=== PATIENT | female | born 2000 | race Caucasian/White ===

== ENCOUNTER 2023-03-04 22:33 | Emergency (ER) | payer MEDICAID ==
[~2023-03-04] VITALS: Ht 177.8 cm; Wt 55.5 kg
[2023-03-04 22:40] VITALS: O2SAT 99
[2023-03-04] MEDS ORDERED: BACITRACIN ZINC OINT UDPKT TOP ONE (22:45)
[2023-03-04] MEDS ORDERED: LIDOCAINE HCL/PF 1% 10 MG/ML 5ML VIAL INFIL ONE (22:45)
[2023-03-04] MEDS ORDERED: IBUPROFEN 600MG TABLET PO ONE (22:45)
[2023-03-04 23:40] VITALS: BP 116/64
[2023-03-05] MEDS ORDERED: BO1 TP (00:11)
[2023-03-05] MEDS ORDERED: IBUP-2028 MT (00:11)
[2023-03-05 00:45] VITALS: PULSE 95; RESP 17; TEMP 98.4
== END 2023-03-05 00:47 | disposition home or self-care (01) ==
LOC: ER 22:33
DX: S71.112A Laceration without foreign body, left thigh, initial encounter (principal); W26.8XXA Contact with other sharp object(s), not elsewhere classified, initial encounter; Y93.89 Activity, other specified; Y92.89 Other specified places as the place of occurrence of the external cause; Y99.8 Other external cause status
CPT/HCPCS: 81025; 12001; 99283; J3490; Z7610 ×2

== ENCOUNTER 2023-03-07 11:41 | Emergency (ER) | payer MEDICAID ==
[~2023-03-07] VITALS: Ht 175.3 cm; Wt 54.0 kg
[~2023-03-07 11:41] MED LIST: BO1 TP; IBUP-2028 MT
[2023-03-07 11:47] VITALS: BP 105/65; O2SAT 97
[2023-03-07 12:13] VITALS: PULSE 84; RESP 18; TEMP 97.7
== END 2023-03-07 12:17 | disposition home or self-care (01) ==
LOC: ER 11:41
DX: Z48.02 Encounter for removal of sutures (principal)
CPT/HCPCS: 99281

== ENCOUNTER 2023-03-17 15:31 | Emergency (ER) | payer MEDICAID ==
[~2023-03-17] VITALS: Ht 177.8 cm; Wt 55.0 kg
[2023-03-17 15:33] VITALS: BP 119/78; PULSE 85; TEMP 98.7; O2SAT 98
== END 2023-03-17 16:20 | disposition home or self-care (01) ==
LOC: ER 15:31
DX: S71.112D Laceration without foreign body, left thigh, subsequent encounter (principal); Z98.890 Other specified postprocedural states; X58.XXXD Exposure to other specified factors, subsequent encounter
CPT/HCPCS: 99281; Z7610 ×2

== ENCOUNTER 2023-05-28 20:55 | Emergency (ER) | payer MEDICAID ==
[~2023-05-28] VITALS: Ht 177.8 cm; Wt 54.0 kg
[2023-05-28] MEDS ORDERED: LORAZEPAM 1MG TABLET PO ONE (21:15)
[2023-05-28 21:55] LABS: BASOPHILS % 0.6 % (0.0-2.0); EOSINOPHILS % 2.1 % (0.0-5.0); HEMATOCRIT. 36.7 % (36.0-48.0); HEMOGLOBIN. 12.7 g/dL (12.0-16.0); LYMPHOCYTES % 23.8 % (20.0-50.0); MEAN CORPUSCULAR HEMOGLOBIN 31.7 pg (28.0-32.0); MEAN CORPUSCULAR HGB CONC 34.6 g/dL (31.0-37.0); MEAN CORPUSCULAR VOLUME 91.6 fL (81.0-99.0); MONOCYTES % 13.6 % (2.0-8.0); NEUTROPHILS % 59.9 % (40.0-76.0); PLATELET 278 x1000/uL (130-400); RED CELL DISTRIBUTION WIDTH 13.1 % (11.6-14.6); WHITE BLOOD COUNT 7.6 x1000/uL (4.5-11.0)
[2023-05-28 21:58] LABS: CLARITY URINE CLEAR (CLEAR); COLOR URINE YELLOW (YELLOW); GLUCOSE URINE NEGATIVE (NEGATIVE); KETONES URINE NEGATIVE (NEGATIVE); LEUKOCYTE ESTERASE URINE NEGATIVE (NEGATIVE); NITRITE URINE NEGATIVE (NEGATIVE); OCCULT BLOOD URINE NEGATIVE (NEGATIVE); PH URINE 5.5 (4.5-8.0); PROTEIN URINE NEGATIVE (NEGATIVE); UROBILINOGEN URINE 0.2 E.U./dL (0.2-1.0)
[2023-05-28 22:07] LABS: ALANINE AMINOTRANSFERASE 10 IU/L (10-49); ALBUMIN 4.3 g/dL (3.2-4.8); ASPARTATE AMINOTRANSFERASE 18 IU/L (<34); BILIRUBIN TOTAL 0.7 mg/dL (0.1-1.0); CALCIUM 9.4 mg/dL (8.7-10.4); CARBON DIOXIDE 25 mEq/L (21-32); CHLORIDE 106 mEq/L (98-107); CREATININE 0.7 mg/dL (0.6-1.0); GLUCOSE 86 mg/dL (70-105); POTASSIUM 3.9 mEq/L (3.5-5.1); PROTEIN TOTAL 7.7 g/dL (6.0-8.3); SODIUM 138 mEq/L (136-145); UREA NITROGEN BLOOD 11 mg/dL (9-23)
[2023-05-28 22:18] LABS: TROPONIN I HIGH SENSITIVITY < 4 ng/L (3.0-34)
[2023-05-29 02:04] VITALS: O2SAT 100
[2023-05-29] MEDS ORDERED: LORAZEPAM 1MG TABLET PO NR (02:15)
[2023-05-29 02:51] VITALS: BP 108/58; PULSE 72; RESP 16; TEMP 98
== END 2023-05-29 02:55 | disposition home or self-care (01) ==
LOC: ER 20:55
DX: F41.9 Anxiety disorder, unspecified (principal); Z98.890 Other specified postprocedural states
CPT/HCPCS: 36415; 71045; 80053; 81003; 81025; 84484; 85025; 93005; 99285

== ENCOUNTER 2023-09-26 06:04 | Emergency (ER) | payer MEDICAID ==
[~2023-09-26] VITALS: Ht 177.8 cm; Wt 55.0 kg
[2023-09-26 06:10] VITALS: O2SAT 100
[2023-09-26 06:52] LABS: BASOPHILS % 0.5 % (0.0-2.0); EOSINOPHILS % 0.6 % (0.0-5.0); HEMATOCRIT. 37.2 % (36.0-48.0); HEMOGLOBIN. 13.3 g/dL (12.0-16.0); MEAN CORPUSCULAR HEMOGLOBIN 32.7 pg (28.0-32.0); MEAN CORPUSCULAR HGB CONC 35.6 g/dL (31.0-37.0); MEAN CORPUSCULAR VOLUME 91.7 fL (81.0-99.0); MONOCYTES % 6.3 % (2.0-8.0); NEUTROPHILS % 68.6 % (40.0-76.0); PLATELET 356 x1000/uL (130-400); RED BLOOD CELL COUNT 4.06 mill/uL (4.2-5.4); RED CELL DISTRIBUTION WIDTH 12.3 % (11.6-14.6); WHITE BLOOD COUNT 9.8 x1000/uL (4.5-11.0)
[2023-09-26 06:59] LABS: CARBON DIOXIDE 26 mEq/L (21-32); CHLORIDE 102 mEq/L (98-107); POTASSIUM 3.3 mEq/L (3.5-5.1); SODIUM 137 mEq/L (136-145)
[2023-09-26 07:00] LABS: CALCIUM 9.5 mg/dL (8.7-10.4)
[2023-09-26 07:05] LABS: CREATININE 0.7 mg/dL (0.6-1.0); GLUCOSE 105 mg/dL (70-105); UREA NITROGEN BLOOD 11 mg/dL (9-23)
[2023-09-26 07:57] LABS: HCG SCREEN NEGATIVE
[2023-09-26 08:09] LABS: ACETAMINOPHEN < 2 ug/mL (10-30)
[2023-09-26 08:32] LABS: CLARITY URINE CLEAR (CLEAR); COLOR URINE YELLOW (YELLOW); GLUCOSE URINE NEGATIVE (NEGATIVE); KETONES URINE NEGATIVE (NEGATIVE); LEUKOCYTE ESTERASE URINE NEGATIVE (NEGATIVE); NITRITE URINE NEGATIVE (NEGATIVE); OCCULT BLOOD URINE NEGATIVE (NEGATIVE); PH URINE 5.5 (4.5-8.0); PROTEIN URINE NEGATIVE (NEGATIVE); SPECIFIC GRAVITY URINE 1.022 (1.005-1.030); UROBILINOGEN URINE 0.2 E.U./dL (0.2-1.0)
[2023-09-26 08:45] LABS: *AMPHETAMINES SCREEN URINE NEGATIVE (NEGATIVE); *BARBITURATES SCREEN URINE NEGATIVE (NEGATIVE); *BENZODIAZEPINES SCREEN URINE NEGATIVE (NEGATIVE); *COCAINE SCREEN URINE PRESUMPTIVE POSITIVE (NEGATIVE); CANNABINOID URINE SCREEN PRESUMPTIVE POSITIVE (NEGATIVE); METHADONE URINE SCREEN NEGATIVE (NEGATIVE); OPIATES URINE SCREEN NEGATIVE (NEGATIVE); PHENCYCLIDINE URINE SCREEN NEGATIVE (NEGATIVE)
[2023-09-26 08:46] VITALS: BP 120/90; PULSE 90; RESP 19; TEMP 98
[2023-09-26 08:46] LABS: ECSTASY MDMA SCREEN URINE CONF.TEST INDICATED (NEGATIVE)
== END 2023-09-26 09:06 | disposition home or self-care (01) ==
LOC: ER 06:15
DX: F14.10 Cocaine abuse, uncomplicated (principal)
CPT/HCPCS: 36415; 80048; 80305; 80307; 80329; 81003; 84703; 85025; 93005; 99284

== ENCOUNTER 2024-01-12 09:39 | Emergency (ER) | payer MEDICAID ==
[~2024-01-12] VITALS: Ht 177.8 cm; Wt 52.0 kg
[2024-01-12 09:41] VITALS: TEMP 98.4; O2SAT 100
[2024-01-12 10:02] VITALS: O2SAT 98
[2024-01-12 11:00] VITALS: BP 117/76; PULSE 97; RESP 17
[2024-01-12] MEDS: DEXAMETHASONE 4MG TABLET PO ONE (11:00)
[2024-01-12] MEDS: KETOROLAC 30MG/ML VIAL IM ONE (11:00)
== END 2024-01-12 11:03 | disposition home or self-care (01) ==
LOC: ER 09:39
DX: J02.9 Acute pharyngitis, unspecified (principal); R05.9 Cough, unspecified; R07.9 Chest pain, unspecified
CPT/HCPCS: 99283; 71045; 93005; 96372; J8540; J1885

== ENCOUNTER 2024-01-16 17:24 | Emergency (ER) | payer MEDICAID ==
[~2024-01-16] VITALS: Ht 177.8 cm; Wt 51.2 kg
[2024-01-16 17:28] VITALS: O2SAT 100
[2024-01-16 17:35] VITALS: BP 121/76; PULSE 90; RESP 18; TEMP 97.9; O2SAT 97
[2024-01-16] MEDS: DEXAMETHASONE 10 MG/ML VIAL IM ONE (18:45)
== END 2024-01-16 20:10 | disposition home or self-care (01) ==
LOC: ER 17:24
DX: J02.9 Acute pharyngitis, unspecified (principal); F41.9 Anxiety disorder, unspecified; F32.9 Major depressive disorder, single episode, unspecified
CPT/HCPCS: 99283; 81025; 96372; J1100

== ENCOUNTER 2024-03-11 20:48 | Emergency (ER) | payer MEDICAID ==
[~2024-03-11] VITALS: Ht 177.8 cm; Wt 50.0 kg
[2024-03-11 20:55] VITALS: O2SAT 95
[2024-03-11 21:15] VITALS: BP 115/76; PULSE 77; RESP 16; TEMP 98.5; O2SAT 99
[2024-03-11] MEDS ORDERED: ONDANSETRON 4MG ODT PO ONE (21:45)
[2024-03-11] MEDS: ONDANSETRON 4MG ODT PO NR (23:45)
[2024-03-12] MEDS ORDERED: ONDA4TAB50 MT (00:12)
== END 2024-03-12 00:31 | disposition home or self-care (01) ==
LOC: ER 20:48
DX: R11.2 Nausea with vomiting, unspecified (principal); F41.9 Anxiety disorder, unspecified; F32.A Depression, unspecified
CPT/HCPCS: 99283; 71045; Q0162

== ENCOUNTER 2024-08-01 14:16 | Emergency (ER) | payer MEDICAID ==
[~2024-08-01] VITALS: Ht 177.8 cm; Wt 50.0 kg
[~2024-08-01 14:16] MED LIST changes: +ONDA4TAB50 MT
[2024-08-01 14:31] VITALS: O2SAT 99
[2024-08-01 15:04] LABS: BASOPHILS % 0.4 % (0.0-2.0); EOSINOPHILS % 1.5 % (0.0-5.0); HEMATOCRIT. 41.6 % (36.0-48.0); HEMOGLOBIN. 13.6 g/dL (12.0-16.0); LYMPHOCYTES % 11.1 % (20.0-50.0); MEAN CORPUSCULAR HEMOGLOBIN 30.9 pg (28.0-32.0); MEAN CORPUSCULAR HGB CONC 32.7 g/dL (31.0-37.0); MEAN CORPUSCULAR VOLUME 94.4 fL (81.0-99.0); MEAN PLATELET VOLUME 7.4 fl (7.4-10.4); MONOCYTES % 4.3 % (2.0-8.0); NEUTROPHILS % 82.7 % (40.0-76.0); PLATELET 299 x1000/uL (130-400); RED CELL DISTRIBUTION WIDTH 11.8 % (11.6-14.6); WHITE BLOOD COUNT 16.9 x1000/uL (4.5-11.0)
[2024-08-01 15:18] LABS: CARBON DIOXIDE 27 mEq/L (21-32); CHLORIDE 102 mEq/L (98-107); POTASSIUM 4.1 mEq/L (3.5-5.1); SODIUM 141 mEq/L (136-145)
[2024-08-01 15:19] LABS: CALCIUM 10.1 mg/dL (8.7-10.4)
[2024-08-01 15:24] LABS: CREATININE 0.8 mg/dL (0.6-1.0); GLUCOSE 90 mg/dL (70-105); UREA NITROGEN BLOOD 15 mg/dL (9-23)
[2024-08-01 15:27] LABS: TROPONIN I HIGH SENSITIVITY < 4 ng/L (3.0-34)
[2024-08-01 16:11] VITALS: BP 103/72; PULSE 94; RESP 17; TEMP 36.7; O2SAT 99
== END 2024-08-01 16:11 | disposition home or self-care (01) ==
LOC: ER 14:16
DX: R07.89 Other chest pain (principal); Z79.899 Other long term (current) drug therapy; Z98.890 Other specified postprocedural states
CPT/HCPCS: 36415; 71045; 80048; 84484; 85025; 93005; 99285